=== PATIENT | female | born 1990 ===

== ENCOUNTER 2017-05-25 05:09 | Inpatient (IN) ==
[2017-05-25 02:03] LABS: Amphetamine Screen,Urine Negative ng/mL (Cutoff=1000); Barbiturate Screen,Urine Negative ng/mL (Cutoff=200); Benzodiazepines Screen,Urine Negative ng/mL (Cutoff=200); Cannabinoid Screen,Urine Negative ng/mL (Cutoff = 50); Cocaine Screen,Urine Negative ng/mL (Cutoff= 300); Opiate Screen,Urine Positive ng/mL (Cutoff=300); Phencyclidine Screen,Urine Negative ng/mL (Cutoff=25)
[~2017-05-25 05:09] MED LIST: *HR* Nalbuphine 20 MG/ML AMPUL IVP PRN; Famotidine 20 MG/2 ML VIAL IVP PRN; Naloxone 0.4 MG/ML INJ IVP PRN; Ondansetron 4 MG/2 ML VIAL IVP PRN
[2017-05-25] MEDS ORDERED: Ringers Solution, Lactated 1,000 ML IVC SCH (05:15)
[2017-05-25] MEDS ORDERED: EPHEDrine 50 MG/ML VIAL IVP PRN (05:18)
[2017-05-25] MEDS ORDERED: Ringers Solution, Lactated 500 ML IVC ONE (05:18)
--- NOTE | 2017-05-25 05:20 | OB/GYN History & Physical ---
Date of Encounter: 05/25/17 Time of Encounter: 05:12 Assessment and Plan (1) 38 weeks gestation of Current visit: Yes Status: Acute admitted for labor (2) Circumvallate placenta Current visit: Yes Status: Acute Patient admitted for delivery EFM Dr. Scooter navarro Qualifiers: Trimester: third trimester Qualified Code(s): O43.113 - Circumvallate placenta, third trimester History of Present Illness Chief complaint: labor HPI: Ms. Roman is a 26 year old female at 38w6d presents to labor and delivery with complaints of cramping that started last night but continued to get stronger a through the night. Patient denies leaking of fluid or vaginal bleeding. Patient reports +FM. Patient was 1 cm dilated on admission but progressed to 4/90/0. Will admit for delivery at this time. Patient has a circumvallate placenta. Blood type:O Positive Rubella: Immune Hep B: Nonreactive RPR: Negative GBS: Negative Past Med Surg Social Fam HX - Past Medical History Source: patient Medical history: no medical history Psychiatric history: no psych history - Past Surgical History Surgical History: appendectomy - Social History Smoking Status: Current every day smoker Packs per day: 1 Smokeless Tobacco Status: No Alcohol use: none Drug use: none Current living situation: Home - Independent Activity Level: Independent ambulation Recent Out of Country Travel Within the Last 8 Weeks: No Exposure or Possible Exposure to Illness During Travel: No - Family History Mother Age: 49 Living Status: Still Living Hx Family Cardiac Disorders: No Hx Family Respiratory Disorders: No Hx Family Cancer: No Hx Family GI Disorders: No Hx Family Genitourinary Disorders: No Hx Family Endocrine Disorder: No Hx Family Musculoskeletal Disorders: No Hx Family Neuromuscular Disorders: No Hx Family Neurologic Disorders: No Hx Family HEENT Disorders: No Hx Family Autoimmune Disorders: No Hx Family Reproductive Disorders: No Hx Family Psychosocial Disorders: No Hx Family Medical Disorders: No Obstetrical History - Pregnancies : 4 Para: 3 Term: 3 : 0 Ab's: 0 Livin Medications and Allergies Formula Tablet 1 tab PO DAILY 05/25/17 [History] 3 Allergy/AdvReac Type Severity Reaction Status Date / Time No Known Allergies Allergy Verified 05/25/17 01:44 Review of System OB - Constitutional Constitutional ROS IM: no chills, no fever(s), no headache(s) - Cardiovascular Cardiovascular: no chest pain, no edema, no lightheadedness, no palpitations, no syncope - Respiratory Respiratory: no cough - Gastrointestinal Gastrointestinal: no constipation, no diarrhea, no heartburn, no nausea, no vomiting - Genitourinary Genitourinary: no abnormal vaginal bleeding, no dysuria, no flank pain, no urinary frequency, no urinary incontinence, no urinary urgency, no vaginal discharge Exam - Constitutional Constitutional: well developed, well nourished, no acute distress, average body habitus - HEENT HEENT: Normocephaly, Mucus Membranes Moist - Neck Neck exam: full ROM, supple - Lungs Respiratory exam: CTAB - Cardiovascular Cardiovascular exam: RRR, +S1, +S2 - Abdomen Abdomen: Present: bowel sounds normal, gravid, non tender - Extremities Extremities exam: full ROM, normal inspection Deep Tendon Reflex Grade: 2+ Normal - Cervix Dilation: 4 Effacement: 90 Station: -1 - Uterus Uterus exam: Present: normal size, normal contour - Anus/Rectum Anus/Rectum: Present: normal perianal skin - Comments Comments: FHR 145 bpm moderate amount variability +15x15 accels no decels noted. Contractions 1.5-4 min apart. Cat. 1 tracing Results Abnormal lab results Urine Opiates Screen Positive ng/mL (Aultmq=124) H 05/25/17 01:40 All other labs normal. - VTE Reasons for not Prescribing Prophylaxis: Treatment not Indicated - Low risk for VTE
--- NOTE | 2017-05-25 05:21 | Anesthesia Evaluation PreOp ---
Date of Encounter: 05/25/17 Time of Encounter: 05:20 - Past History Planned Operation: LATRELL Cardiac History: Denies any Significant Hx Pulmonary History: Smoker VIRTUALIZATION CONSULTANT History: Denies Any Significant HX Other Medical History: Denies Any Significant HX Anesthesia History: No Prior Anesthetic Complications, Past Anesthesia : Yes ( 38.6) Alcohol Use: none Drug use: none Medications and Allergies Formula Tablet 1 tab PO DAILY 05/25/17 [History] 3 Allergy/AdvReac Type Severity Reaction Status Date / Time No Known Allergies Allergy Verified 05/25/17 01:44 - Meds/Allergy Pre-op Review Medications Reviewed: Yes Allergies Reviewed: Yes Beta Blockers on Current Med List: No Anesthesia Exam Height: 1.63m Weight: 68.8kg NPO (# of Hours): 3 Pain Scale: 9 Pain Scale Used: Numeric (1 - 10) - HEENT Pupil (Motor): Pupils equal Mallampati: II Teeth: Normal Oral Opening: Greater than 3 - VIRTUALIZATION CONSULTANT LOC: Oriented VIRTUALIZATION CONSULTANT Motor: Normal RUE, Normal LUE, Normal RLE, Normal LLE, Normal Face VIRTUALIZATION CONSULTANT Sensory: Normal: RUE, LUE, RLE, LLE, Face - Cardiac Rhythm: Regular Murmur: None JVD: No Carotid Bruit: No - Pulmonary Breath Sounds: bilateral Clear Respiratory Effort: Symmetrical Anesthesia Assess/Plan ASA Score: 2 Modified Fabi Scale for Level of Consciousness: Cooperative, oriented, and tranquil Anesthetic Plan: General (plan b), Regional (plan a) Autologous Blood: Yes Monitoring Plan: Standard Monitors
[2017-05-25] MEDS ORDERED: Ringers Solution, Lactated 1,000 ML ONE (05:24)
[2017-05-25] MEDS ORDERED: Epidural Premix (fent/bupiv) 110 ML EP ONE ×2 (05:28→12:02)
[2017-05-25] MEDS ORDERED: Epidural Premix (fent/bupiv) 110 ML EP SCH (05:30)
[2017-05-25 05:37] LABS: Basophils # 0.1 K/mcL (0.0-0.2); Basophils % 0.6 %; Eosinophils # 0.1 K/mcL (0.0-0.6); Eosinophils % 0.8 %; Hemoglobin 13.7 g/dL (11.5-15.4); Immature Granulocytes % 3.5 % (0-4); Lymphocytes # 4.4 K/mcL (0.6-4.6); Lymphocytes % 25.9 %; Mean Corpuscular HGB Conc 34.3 g/dL (31.6-35.5); Mean Corpuscular Hemoglobin 30.2 pg (28.0-33.3); Mean Corpuscular Volume 88.1 fL (83.0-100.0); Mean Platelet Volume 8.7 fL (9.4-12.4); Monocytes # 0.9 K/mcL (0.0-1.3); Monocytes % 5.5 %; Neutrophils # 10.8 K/mcL (1.6-8.9); Platelet Count 240 K/mcL (140-400); Red Blood Count 4.54 M/mcL (3.82-4.97); Red Cell Distribution Width 14.1 % (11.5-14.5); Segmented Neutrophils % 63.7 %
--- NOTE | 2017-05-25 06:11 | Anesthesia Procedures ---
Date of Encounter: 05/25/17 Time of Encounter: 06:09 Procedures: Anesthesia - Epidural/Spinal Patient ID/Chart reviewed: Yes Patient examined: Yes OB Eval: Gestational age: 38.6 OB Eval: : 4 OB Eval: Hx Para: 3 OB Eval: Dilated at (cm): 4 OB Eval: Contractions: Non-stressed pattern Consent Obtained: Yes Supplemental Oxygen: None/Room Air Site Prep: Aseptic Technique, Sterile prep and drape, Povidone-Iodine 1% Patient position: upright Local Anesthetic: Lidocaine 1% Amount of Local Anesthetic used: 3 Touhy Needle Gauge: 18 Touhy Needle Depth (cm): 7 Catheter Depth at Skin (cm): 18 Test Dose (1.5% Lido + Epi): Volume given (mls): 5 Test Dose Result: Negative Loading Dose: Other: 10mls of epidural pharm bag premix solution Loading Dose Administered: Thru Catheter Infusion Med: 0.125% Bupivacaine w/ 2 mcg/ml Fentanyl Infusion Rate (mls/hr): 14 ([id number]) Catheter Secured in Place: Tegaderm, Tape Interspace Used: L3-L4 Loss of Resistance (SARAN): Yes Blood: No CSF: No Paresthesia: No Procedure: pt tolerated procedure well. no complications. vss. fhr stable throughout. see nursing notes for full vitals.
--- NOTE | 2017-05-25 12:14 | OB Labor Progress Note ---
Date of Encounter: 05/25/17 Time of Encounter: 12:10 Labor Progress Note - Subjective Subjective: Pt comfortable with epidural. - Cervix Cervix: 7/100/0 - Heart Tones Heart Tones: Ctegory I - Telford Telford: 2-3 minutes - Interventions Interventions: AROM for moderate amount clear fluid - Plan Plan: Continue to monitor. Anticipate .
--- NOTE | 2017-05-25 13:40 | OB/GYN Procedure Note ---
Delivery - Delivery Date: 05/25/17 Provider: Karol Junior Intrapartum events: none Delivery induction: none Delivery augmentation: rupture of membranes Delivery monitor: external FHT, external uterine Anesthesia: epidural Estimated Blood Loss: 200 - (s) Infant A Delivery Date: 05/25/17 Infant Delivery Time: 13:15 Presentation: vertex Position: OA Route of delivery: Gender: Male Pounds: 6 Ounces: 10 Weight Gram: 3010 kg at 1 minute: 9 at 5 mins: 9 Shoulder Dystocia: not encountered Specimens collected: cord blood Placenta: spontaneous Cord: 3 umbilical vessels - Repair Episiotomy: none Laceration Description: Periurethral - Complications Delivery complications: none Delivery comments: Patient progressed to complete. Under maternal effort a live born male was delivered vertex, OA via . Once the head was delivered, no nuchal cord was encountered. The shoulders delivered easily and the body followed after. The baby immediately placed on the maternal abdomen. Once the cord stopped pulsating , it was clamped and cut. The placenta delivered spontaneously and intact with a 3-vessel cord. EBL 200. No lacerations noted upon thorough inspection. Mother and baby stable, left bonding skin to skin in labor and delivery. - Disposition Mom disposition: stable in LDR disposition: stable in LDR
[2017-05-25] MEDS ORDERED: Benzocaine/Menthol 56 GM AEROSOL SPRAY TP PRN (16:23)
[2017-05-25] MEDS ORDERED: Oxytocin 20 units/ LR 1000 mL 20 UNIT/1,000 ML BAG IVC SCH (16:23)
[2017-05-25] MEDS ORDERED: Oxytocin 20 units/ LR 1000 mL 20 UNIT/1,000 ML BAG IVC ONE (16:26)
[2017-05-25] MEDS: Ibuprofen 600 MG TABLET PO PRN ×2 (17:07→23:43)
[2017-05-25] MEDS: Acetaminophen 325 MG TABLET PO PRN (20:15)
[2017-05-26] MEDS ORDERED: hydrOXYzine pamoate 25 MG CAPSULE PO ONE (01:59)
[2017-05-26 05:08] LABS: Basophils # 0.1 K/mcL (0.0-0.2); Basophils % 0.4 %; Eosinophils % 0.2 %; Hematocrit 35.2 % (35.3-44.9); Immature Granulocytes % 1.8 % (0-4); Lymphocytes % 18.1 %; Mean Corpuscular HGB Conc 33.5 g/dL (31.6-35.5); Mean Corpuscular Hemoglobin 30.3 pg (28.0-33.3); Mean Corpuscular Volume 90.5 fL (83.0-100.0); Mean Platelet Volume 9.2 fL (9.4-12.4); Monocytes # 1.1 K/mcL (0.0-1.3); Monocytes % 6.4 %; Neutrophils # 12.2 K/mcL (1.6-8.9); Platelet Count 221 K/mcL (140-400); Red Blood Count 3.89 M/mcL (3.82-4.97); Red Cell Distribution Width 13.7 % (11.5-14.5); Segmented Neutrophils % 73.1 %
[2017-05-26 05:09] LABS: Hemoglobin 11.8 g/dL (11.5-15.4)
[2017-05-26] MEDS ORDERED: Ondansetron 4 MG/2 ML VIAL IVP ONE (05:09)
[2017-05-26] MEDS: Prenatal Vit/FA 1 EACH TABLET PO SCH (08:41)
[2017-05-26] MEDS: Acetaminophen 325 MG TABLET PO PRN (08:43)
[2017-05-26] MEDS ORDERED: Bupivacaine/EPI 1:200k 0.5%PF 10 ML VIAL ONE (13:16)
--- NOTE | 2017-05-26 13:17 | History & Physical Report ---
Date of Encounter: 05/26/17 Time of Encounter: 13:17 24 Hour HP Update - Instructions Instructions: If the History and Physical is less than 30 days old and was completed prior to A.M. admission and or procedure and has NOT been updated on calendar day of procedure please complete this update prior to performing procedure. - Update Patient reports changes in Medical Condition: No Changes in examination, assessment, or condition: No Changes in Medication: No Preop tests/diagnostics Reviewed: Yes Surgery Remains Indicated: Yes Consent for Planned Operative Procedure(s) Verified: Yes - Pre-Operative Checklist Preoperative Checklist Indicated: Yes Prophylactic Antibiotic Ordered: Yes Home Medications Include Beta Jeanmarie: No Beta Jeanmarie Taken Today (Day of Surgery): No Beta Jeanmarie Taken Yesterday (Day Prior to Surgery): No Is VTE Prophylaxis Indicated?: Yes
--- NOTE | 2017-05-26 13:47 | Anesthesia Evaluation PreOp ---
Date of Encounter: 05/26/17 Time of Encounter: 13:46 - Past History Planned Operation: BPS Cardiac History: Denies any Significant Hx Pulmonary History: Smoker INTERIOR PLANT CARETAKER History: Denies Any Significant HX Other Medical History: Denies Any Significant HX Anesthesia History: No Prior Anesthetic Complications Alcohol Use: none Drug use: none Medications and Allergies Formula Tablet 1 tab PO DAILY 05/25/17 [History] 3 Allergy/AdvReac Type Severity Reaction Status Date / Time No Known Allergies Allergy Verified 05/25/17 01:44 - Meds/Allergy Pre-op Review Medications Reviewed: Yes Allergies Reviewed: Yes Beta Blockers on Current Med List: No Anesthesia Results - Labs 05/26/17 04:04 Anesthesia Exam Last Vital Signs Temp 98.1 F 05/26/17 07:30 Pulse 61 05/26/17 13:36 Resp 15 05/26/17 13:36 BP 128/76 05/26/17 13:36 Pulse Ox 97 05/26/17 07:30 Weight: 65 kg NPO (# of Hours): > 8 hrs - HEENT Pupil (Motor): Pupils equal, EOMI Mallampati: II Teeth: Poor dentition Oral Opening: Greater than 3 - INTERIOR PLANT CARETAKER LOC: Oriented - Cardiac Rhythm: Regular Murmur: None - Pulmonary Breath Sounds: bilateral Clear Respiratory Effort: Symmetrical Anesthesia Assess/Plan ASA Score: 2 Modified Fabi Scale for Level of Consciousness: Cooperative, oriented, and tranquil Anesthetic Plan: General Monitoring Plan: Standard Monitors Recovery Plan: PACU
[2017-05-26] MEDS ORDERED: *HR* Midazolam HCl 2 MG/2 ML VIAL ONE (13:58)
[2017-05-26] MEDS ORDERED: *HR* Propofol 200 MG/20 ML VIAL IVP ONE (13:58)
[2017-05-26] MEDS ORDERED: *HR* FentaNYL (PF) 100 MCG/2 ML VIAL ONE ×2 (13:58→14:20)
[2017-05-26] MEDS ORDERED: *HR* Rocuronium Bromide 50 MG/5 ML VIAL ONE (14:19)
[2017-05-26] MEDS ORDERED: Ketorolac 30 MG/ML VIAL ONE (14:30)
[2017-05-26] MEDS ORDERED: Ondansetron 4 MG/2 ML VIAL ONE (14:30)
[2017-05-26] MEDS ORDERED: Dexamethasone 4 MG/ML VIAL ONE (14:30)
[2017-05-26] MEDS ORDERED: Neostigmine Methylsulfate 3 MG/3 ML SYRINGE ONE (14:30)
[2017-05-26] MEDS ORDERED: *HR* HYDROcodone/Acet 5/325 mg TABLET PO PRN (14:40)
[2017-05-26] MEDS ORDERED: *HR* Promethazine 25 MG/ML VIAL ONE (15:15)
[2017-05-26] MEDS: *HR* Promethazine 25 MG/ML VIAL IVP PRN ×2 (15:15→19:59)
--- NOTE | 2017-05-26 15:18 | OB/GYN Procedure Note ---
OB-BIT AND SHANK DEPARTMENT SUPERVISOR: Procedure - Diagnosis Date of procedure: 05/26/17 Pre-op diagnosis: Desires permanent sterilization Post-op diagnosis: same - Procedure Procedure: Modified jd post bilateral partial salpingectomy Surgeon: Harpreet Garcia Was there an assistant front end manager present: Yes Tree Trimmer Helper: Harpreet Garcia Anesthesia Type: General Estimated blood loss (cc): 10 Fluids: crystalloid Specimens collected: Bilateral tubal segments Disposition: PACU Findings: Normal tubal segments bilaterally Narrative: Patient's 26-year-old multiparous female status post vaginal delivery presents for bilateral partial salpingectomy. She is aware operative risks and permanence procedure and desired to proceed. Description procedure: Patient was taken operating room where general anesthesia was administered she prepped draped in usual sterile fashion bladder drained clear urine. Scalpel was used to make a small skin incision below the umbilicus Mr. sharply taken on the fascia. Fascia was incised in the midline fascial incision was extended bilaterally. Peritoneum was tented upwards and entered sharply without difficulty. Left fallopian tube was identified double ligated with 0 plain catgut suture. Approximately 3 cm segment of left fallopian tube was transected and removed. Right fallopian tube was then identified followed out to its fimbriated end approximate 3 cm segment of this tube was also doubly ligated and transected without difficulty. Hemostasis was ensured. Fascia was closed 0 Vicryl. Skin was reapproximated with 4-0 Vicryl. All sponge and instruments counts are correct patient taken recovery in good condition.
[2017-05-26] MEDS ORDERED: Acetaminophen IV 1,000 MG/100 ML INFUS..BTL IVPB ONE (15:30)
--- NOTE | 2017-05-26 16:02 | Anesthesia Evaluation Post Op ---
Date of Encounter: 05/26/17 Time of Encounter: 16:01 - Vital Signs Vital Signs: Vital Signs/O2 Sat, Most Current Temp Pulse Resp BP Pulse Ox 97.3 F L 76 16 149/89 99 05/26/17 15:34 05/26/17 15:34 05/26/17 15:34 05/26/17 15:34 05/26/17 15:34 - Lungs Lungs: Clear Ascult./Percussion - Airway Airway: Non-obstructed - Cardiovascular Regular Rate - Mental Status Mental Status: Alert & Oriented, Answers Appropriately - Pain Pain Scale: 0 Pain Scale used: Numeric (1 - 10) - Nausea Vomiting Nausea Vomiting: Not Present - Hydration Hydration: NPO, Has not voided - Discharge PostOp Status: Transfer Patient to floor
[2017-05-26] MEDS: *HR* HYDROcodone/Acet 5/325 mg TABLET PO PRN (20:17)
[2017-05-27] MEDS: *HR* HYDROcodone/Acet 5/325 mg TABLET PO PRN ×2 (02:04→10:26)
[2017-05-27] MEDS: Prenatal Vit/FA 1 EACH TABLET PO SCH (07:58)
[2017-05-27] MEDS: Ibuprofen 600 MG TABLET PO PRN (07:58)
[2017-05-27 08:06] VITALS: BP 116/64
--- NOTE | 2017-05-27 10:34 | Discharge Summary ---
Date of Encounter: 05/27/17 Time of Encounter: 10:29 - Discharge Diagnosis (1) Vaginal delivery Priority: Primary Status: Acute Comments: Pt meeting all milestones Pain well controlled with PO pain meds Tolerating regular diet Voiding independently Passing flatus but no BM yet Lochia light Discharge today (2) Status post tubal ligation Priority: Secondary Status: Acute Comments: Pain controlled with PO pain meds Meeting all milestones Discharge today - Discharge Medications Prescriptions: HYDROcodone/Acet 5/325 mg [[place] 5-325 mg] 1 tab PO Q4HR PRN 5 Days #30 tablet PRN Reason: Moderate Pain Ibuprofen [Motrin] 600 mg PO Q6HR PRN #30 tablet PRN Reason: Cramping Docusate [Colace] 100 mg PO BID #30 capsule Home Medications: Formula Tablet 1 tab PO DAILY 05/25/17 [History] Acetaminophen [Tylenol] 650 mg PO Q6HR PRN tablet 05/27/17 [Rx] Benzocaine/Menthol [place] [Dermoplast [place]] 1 appl TP QID PRN aerosol 05/27/17 [Rx] Docusate [Colace] 100 mg PO BID #30 capsule 05/27/17 [Rx] HYDROcodone/Acet 5/325 mg [[place] 5-325 mg] 1 tab PO Q4HR PRN 5 Days #30 tablet 05/27/17 [Rx] Ibuprofen [Motrin] 600 mg PO Q6HR PRN #30 tablet 05/27/17 [Rx] Allergies/Adverse Reactions: 3 Allergy/AdvReac Type Severity Reaction Status Date / Time No Known Allergies Allergy Verified 05/25/17 01:44 Data Procedures and tests throughout hospitalization: Laboratory Tests 05/25/17 05/25/17 05/26/17 01:40 05:11 04:04 WBC 17.0 H 16.8 H RBC 4.54 3.89 Hgb 13.7 11.8 D Hct 40.0 35.2 L MCV 88.1 90.5 MCH 30.2 30.3 MCHC 34.3 33.5 RDW 14.1 13.7 Plt Count 240 221 MPV 8.7 L 9.2 L Immature Gran % 3.5 1.8 Seg Neutrophils % 63.7 73.1 Lymphocytes % 25.9 18.1 Monocytes % 5.5 6.4 Eosinophils % 0.8 0.2 Basophils % 0.6 0.4 Neutrophils # 10.8 H 12.2 H Lymphocytes # 4.4 3.0 Monocytes # 0.9 1.1 Eosinophils # 0.1 0.0 Basophils # 0.1 0.1 Urine Opiates Screen Positive H Ur Barbiturates Screen Negative Ur Phencyclidine Scrn Negative Ur Amphetamines Screen Negative U Benzodiazepines Scrn Negative Urine Cocaine Screen Negative U Marijuana (THC) Screen Negative Date of admission: 05/25/17 05:09 Primary care physician: PCP NONE Consults: 05/25/17 16:23 Consult to Miscellaneous Machine Operator [CONS] Routine Comment: Vaginal delivery, consult needed Discharging clinician: Tenisha Lopez Anticipated date of discharge: 05/27/17 - Patient Status Disposition: Home, Self-Care Condition: Good Functional capacity at discharge: independent ambulation Overall status at discharge: patient is progressing back to baseline - Discharge Instructions Follow Up With: NONE,PCP [Primary Care Provider] - Heron Jimenez DO [Partnered Physician] - - Diet and Activity Activity: increase activity as tolerated Diet: regular diet Hospital Course Reason for admission: active labor, IUP at term Delivery: Episiotomy: none Laceration: other (Periurethral) Other procedures: none complications: none Discharge diagnosis: IUP at term delivered, other (Bilateral tubal ligation) baby: male Time Attestation: Total time spent providing and/or coordinating discharge services: Time Spent: Less than 30 minutes Exam - Constitutional Vitals: Temp Pulse Resp BP Pulse Ox 98.5 F 66 18 116/64 97 05/27/17 08:04 05/27/17 08:04 05/27/17 08:04 05/27/17 08:04 05/27/17 08:04 General appearance IM: A&O X 3 - Respiratory Respiratory exam: Present: CTAB - Cardiovascular Cardiovascular exam IM: Present: RRR, +S1, +S2 - GI/Abdominal GI/Abdominal exam IM: normal bowel sounds, no peritoneal signs Incision: normal, intact, dressed - Rectal Rectal exam: deferred - Uterine Tone: Firm Uterus Position: At Umbilicus, Midline - Extremities Exam Extremities exam IM: Present: radial pulses palpable and symmetrical - Neurological Exam Neurological exam: alert, oriented X3 - Psychiatric Additional comments: Pt feeling mentally well today. S/sx of PPD discussed and pt verbalized when to call.
== END 2017-05-27 18:47 | disposition home or self-care (01) | DRG 541 ==
LOC: 1NENULAB → 1NENUOBS 18:17
PROVIDERS: ADMIT Obstetrics & Gynecology; ATTEND Obstetrics & Gynecology